=== PATIENT | male | born 1980 | race African-American/Black ===

== ENCOUNTER 2021-04-30 23:12 | Emergency (ER) | payer OTHER ==
[2021-04-30 23:25] VITALS: BP 131/90; PULSE 77; TEMP 98.6; BMI 22.4
[2021-05-01] MEDS ORDERED: KETOROLAC TROMETHAMINE 30 MG/1 ML VIAL IM ONE (00:21)
[2021-05-01] MEDS ORDERED: LIDOCAINE 5% TOPICAL PATCH TP ONE (00:25)
[2021-05-01] MEDS ORDERED: KETOROLAC TROMETHAMINE 30 MG/1 ML VIAL ONE (00:39)
[2021-05-01] MEDS ORDERED: LIDOCAINE PATCH REMOVAL MC ONE (13:00)
== END 2021-05-01 00:46 | disposition home or self-care (01) ==
LOC: JER 23:12
PROC: 3E0233Z Introduction of Anti-inflammatory into Muscle, Percutaneous Approach (ICD-10-PCS; principal; 2021-05-01)
DX: M54.9 Dorsalgia, unspecified (principal); V89.2XXA Person injured in unspecified motor-vehicle accident, traffic, initial encounter; Y92.9 Unspecified place or not applicable
CPT/HCPCS: 99283-25

== ENCOUNTER 2022-01-19 06:35 | Emergency (ER) | payer OTHER ==
[2022-01-19 07:28] VITALS: BP 117/79; PULSE 62; TEMP 98.2; BMI 23.0
== END 2022-01-19 08:53 | disposition home or self-care (01) ==
LOC: JER 06:35 → JERFT 06:35
DX: R05.9 Cough, unspecified (principal)
CPT/HCPCS: 71046-TC-FY; 99283-25

== ENCOUNTER 2023-09-12 18:51 | Emergency (ER) | payer OTHER ==
[2023-09-12 19:00] VITALS: BP 126/84; PULSE 88; RESP 20; TEMP 98.4; BMI 23.4
[2023-09-12] MEDS ORDERED: KETOROLAC TROMETHAMINE 30 MG/1 ML VIAL IM ONE (19:25)
[2023-09-12] MEDS ORDERED: ACETAMINOPHEN 500 MG TABLET (FP) PO ONE (19:25)
[2023-09-12] MEDS ORDERED: KETOROLAC TROMETHAMINE 30 MG/1 ML VIAL ONE (19:27)
[2023-09-12] MEDS ORDERED: ACETAMINOPHEN 500 MG TABLET (FP) ONE (19:27)
== END 2023-09-12 20:45 | disposition home or self-care (01) ==
LOC: JERFT 18:51
PROC: 3E0233Z Introduction of Anti-inflammatory into Muscle, Percutaneous Approach (ICD-10-PCS; principal; 2023-09-12)
DX: M25.561 Pain in right knee (principal)
CPT/HCPCS: 73560-TC-RT-FY; 73630-TC-RT-FY; 99284-25